=== PATIENT | male | born 1975 | race Caucasian/White ===

== ENCOUNTER 2024-05-07 09:54 | Emergency (ER) | payer BC ==
[2024-05-07] MEDS ORDERED: Ondansetron PF 4 MG/2 ML Vial ONE (10:28)
[2024-05-07] MEDS ORDERED: Ketorolac Tromethamine 30 MG (1 mL) VIAL ONE (10:28)
[2024-05-07] MEDS ORDERED: Morphine 10 MG/ML VIAL ONE (10:28)
[2024-05-07 10:33] LABS: #Basophils 0.07 10x3/uL (0.0-0.2); #Eosinophils 0.08 10x3/uL (0.0-0.5); #Monocytes 0.56 10x3/uL (0.0-1.1); #Neutrophils 4.75 10x3/uL (1.5-8.4); %Eosinophils 1.2 % (0.0-6.0); %Lymphocytes 20.3 % (18.0-47.0); %Monocytes 8.1 % (0.0-10.0); %Neutrophils 69.1 % (40.0-75.0); Hematocrit 42.7 % (38.8-50.0); Hemoglobin 13.9 g/dL (13.5-17.5); Mean Corpuscular HGB CONC 32.6 g/dL (32.0-36.0); Mean Corpuscular Hemoglobin 28.6 pg (27.0-33.0); Mean Corpuscular Volume 87.9 fL (81.2-95.1); Mean Platelet Volume 10.2 fL (7.4-10.4); Platelet Count 283 10x3/uL (150-450); Red Blood Cell (RBC) Count 4.86 10x6/uL (4.32-5.72); White Blood Cell (WBC) Count 6.9 10x3/uL (3.5-10.5)
[2024-05-07 10:45] LABS: ALT (SGPT) 33 U/L (8-55); AST (SGOT) 22 U/L (5-34); Albumin 4.3 g/dL (3.5-5.0); Alkaline Phosphatase 53 U/L (40-110); Anion Gap 13 mmol/L (10-20); BUN (Urea Nitrogen) 15 mg/dL (8.9-20.6); Bilirubin, Total 0.8 mg/dL (0.2-1.2); Calc. Creatinine Clearance 0 mL/min (70-130); Calcium 9.3 mg/dL (7.8-10.44); Carbon Dioxide 25 mmol/L (22-29); Chloride 105 mmol/L (98-107); Estimated GFR 76; Globulin 2.7 g/dL (2.4-3.5); Glucose 132 mg/dL (70-105); Potassium 4.1 mmol/L (3.5-5.1); Sodium 139 mmol/L (136-145)
[2024-05-07 10:51] LABS: Bilirubin Neg (Negative); Blood, Urine Negative (Negative); Clarity Clear (Clear); Glucose, Urine (Dipstick) Normal (Negative); Ketone, Urine Negative (Negative); Leukocyte Negative (Negative); Nitrite Negative (Negative); Protein, Urine (Dipstick) Negative (Neg-Trace); Specific Gravity, Urine 1.015 (1.005-1.030); Urobilinogen Normal mg/dL (Less than 2); pH, Urine 6.5 (5.0-9.0)
[2024-05-07 10:58] LABS: Bacteria/HPF None Seen HPF (None Seen); CAUTI Indications for Culture Pelvic or flank pain; RBC/HPF 0-3 HPF (0-3); Squamous Epithelial 0-3 HPF (0-3); Urine Culture Reflex No No; WBC/HPF 0-3 HPF (0-3)
[2024-05-07] MEDS ORDERED: HYDROcodone/Acetaminophen 5/325 mg Tablet ONE (11:10)
== END 2024-05-07 11:54 | disposition home or self-care (01) ==
LOC: CSHERS 09:54
DX: N13.2 Hydronephrosis with renal and ureteral calculous obstruction (principal); N28.1 Cyst of kidney, acquired
CPT/HCPCS: 74176; 80053; 81001; 85025; 96374; 96375; J1885; J2270; J2405